=== PATIENT | female | born 1960 ===

== ENCOUNTER 2019-02-02 08:35 | Emergency (ER) | payer OTHER ==
[2019-02-02 09:11] VITALS: BP 130/81
--- NOTE | 2019-02-02 09:32 | UC ---
General HPI - HPI Summary HPI Summary: Patient states yesterday she noticed some left eye redness and itching yesterday. Today while working at her computer, she noticed both eyes very itchy with drainage and redness. Vision seems slightly blurry. Worse on L. No URI s/s. No fever. Meds: Reviewed - History of Current Complaint Chief Complaint: UCEye Stated Complaint: EYE DISCOMFORT Time Seen by Provider: 02/02/19 09:24 Pain Intensity: 0 - Allergy/Home Medications Allergies/Adverse Reactions: Allergies Allergy/AdvReac Type Severity Reaction Status Date / Time MS Latex [Latex] Allergy Mild Rash Verified 02/02/19 08:58 MS Povidone Iodine Allergy Swelling Verified 02/02/19 08:58 [From Betadine] Home Medications: Home Medications Aspirin 81 mg CHEW TAB* 81 mg PO 02/02/19 [History] Atorvastatin* [Lipitor 10 MG*] 10 mg PO DAILY 02/02/19 [History Confirmed ] Hydrochlorothiazide TAB* [Hydrodiuril TAB*] 25 mg PO DAILY 02/02/19 [History Confirmed 02/02/19] Metoprolol Tartrate TAB* [Lopressor TAB*] 25 mg PO DAILY 02/02/19 [History Confirmed 02/02/19] Ranitidine TAB (NF) [Zantac TAB (NF)] 150 mg PO DAILY 02/02/19 [History Confirmed 02/02/19] buPROPion TAB* [Wellbutrin TAB*] 75 mg PO DAILY 02/02/19 [History Confirmed ] PMH/Surg Hx/FS Hx/Imm Hx Previously Healthy: Yes - Surgical History Surgical History: None Surgery Procedure, Year, and Place: Thyroid removal. Hysterectomy complete , tubal. C section, appy - Social History Alcohol Use: None Substance Use Type: None Smoking Status (MU): Former Smoker Type: Cigarettes Amount Used/How Often: 1/2 ppd Length of Time of Smoking/Using Tobacco: 40+ years Have You Smoked in the Last Year: Yes Review of Systems All Other Systems Reviewed And Are Negative: Yes Eyes: Positive: Drainage, Eye Redness Physical Exam Triage Information Reviewed: Yes Appearance: Well-Appearing Vital Signs: Initial Vital Signs Temp 98.5 F 02/02/19 09:05 Pulse 62 02/02/19 09:05 Resp 16 02/02/19 09:05 BP 130/81 02/02/19 09:05 Pulse Ox 96 02/02/19 09:05 Eyes: Positive: Conjunctiva Inflamed, Discharge, Other: - b/l conjunctival injection. Conjunctival hemorrhage on left medial side ENT: Positive: Normal ENT inspection Respiratory: Positive: Chest non-tender, Lungs clear Cardiovascular: Positive: RRR, No Murmur Course/Dx - Course Course Of Treatment: This is a 59 yr old with b/l eye redness, itch and drainage. Assessment. B/L conjunctivitis. Vision: 20/20 b/l. Plan. Recommend starting eye drops as prescribed. Recommend good hand washing. If symptoms persist or worsen over the next 2-3 days despite treatment, recommend follow up with your ophthamologist - Diagnoses Provider Diagnosis: Conjunctivitis Discharge - Sign-Out/Discharge Documenting (check all that apply): Patient Departure All imaging exams completed and their final reports reviewed: No Studies - Discharge Plan Condition: Good Disposition: HOME Prescriptions: Polymyx/Trimethoprim OPTH* [Polytrim OPHTH*] 2 drop BOTH EYES Q8HR #1 btl Patient Education Materials: Conjunctivitis (ED) Forms: *Work Release Referrals: Shaila Atkins MD [Primary Care Provider] - Additional Instructions: Recommend starting eye drops as prescribed Recommend good hand washing If symptoms persist or worsen over the next 2-3 days despite treatment, recommend follow up with your ophthamologist - Billing Disposition and Condition Condition: GOOD Disposition: Home
== END 2019-02-02 09:46 | disposition home or self-care (01) ==
LOC: UCEAST 08:35
DX: H10.9 Unspecified conjunctivitis (principal); Z87.891 Personal history of nicotine dependence; Z91.040 Latex allergy status; Z88.8 Allergy status to other drugs, medicaments and biological substances
CPT/HCPCS: 99202; G0463